=== PATIENT | female | born 1935 | race Caucasian/White ===

== ENCOUNTER 2020-01-15 20:26 | Emergency (ER) | payer MEDICARE, OTHER ==
[~2020-01-15] VITALS: Ht 162.6 cm; Wt 77.1 kg
[~2020-01-15 20:26] MED LIST: ACET325 PO; ACET500 PO; AMIT50 PO; AMLO5 PO; ASCO500 PO; ASPI325 PO; Antivert12.5 MG PO; Bactrim Ds Tab1 EACH PO; CARI350 PO; CETI10 PO; CIPR500 PO; CITA20 PO; CLON1 PO; CODGUAEL PO; DEXL60CA3 PO; DIAZ10; DIPH50; ERGO400 PO; ESOM20; ESOM20 PO; FENO145 PO; FERROUS SULFATE PO; FISH1000 PO; Ferus150 MG; GABA300 PO; HYDACE5; HYDACE5 PO; HYDACE5325 PO; HYDR1TAB94 PO; Hair, Skin & N1 EACH PO; LEVFLO250 PO; LEVFLO500; LEVSOD100 PO; LEVSOD125 PO; LEVSOD150 PO; LEVSOD175 PO; LEVSOD50 PO; LEVSOD75; LOVA20 PO; Lopressor 25 mg25 MG PO; METO10 PO; METO100ER; METO25 PO; METO25ER PO; METO50 PO; METO50ER PO; METR500 PO; MIDO2.5 PO; MIRT15 PO; MIRT30 PO; NAPR250 PO; NITR.4SL SL; Nexium PO; OMEP20ER PO; OMEP40CA12 PO; OSEL75CA PO; PROM25 PO; PROP30DR OU; Pain Relief500 MG PO; RANI150 PO; ROPI1; SPIHYD PO; SPIR25; SPIR25 PO; SUCR1 PO; SULTRIDS PO; Synthroid175 MCG PO; TRAZ100 PO; TRAZ50 PO; VENL150ER PO; VENL75ER; VENL75ER PO; Verotin-Gr Cap1 EACH PO; WARF2.5 PO; [UNRECOGNIZED DRUG - OTHER] PO
== END 2020-01-16 02:13 | disposition home or self-care (01) ==
LOC: ER 20:26
DX: T46.4X1A Poisoning by angiotensin-converting-enzyme inhibitors, accidental (unintentional), initial encounter (principal); T38.3X1A Poisoning by insulin and oral hypoglycemic [antidiabetic] drugs, accidental (unintentional), initial encounter; I10 Essential (primary) hypertension; Z88.0 Allergy status to penicillin; Z88.2 Allergy status to sulfonamides; Z88.5 Allergy status to narcotic agent; Z91.09 Other allergy status, other than to drugs and biological substances; Z88.8 Allergy status to other drugs, medicaments and biological substances; Z79.899 Other long term (current) drug therapy; E03.9 Hypothyroidism, unspecified; Z87.891 Personal history of nicotine dependence
CPT/HCPCS: 36415; 82947; 99284

== ENCOUNTER 2020-01-20 16:36 | Emergency (ER) | payer MEDICARE, OTHER ==
[~2020-01-20] VITALS: Ht 165.1 cm; Wt 81.7 kg
[2020-01-20 17:41] LABS: BASOPHILS ABSOLUTE AUTO 0.08 K/mm3 (0.00-0.23); BASOPHILS PERCENT AUTO 2 % (0-2); EOSINOPHILS PERCENT AUTO 4 % (0-6); Hematocrit 42.3 % (33.0-51.0); Hemoglobin 13.3 g/dL (11.5-16.0); IMMATURE GRAN ABSOLUTE AUTO 0.02 K/mm3 (0.00-0.10); IMMATURE GRAN PERCENT AUTO 0 % (0-1); LYMPHOCYTES ABSOLUTE AUTO 1.66 K/mm3 (0.84-5.20); LYMPHOCYTES PERCENT AUTO 32 % (21-46); MONOCYTES ABSOLUTE AUTO 0.49 K/mm3 (0.16-1.47); MONOCYTES PERCENT AUTO 10 % (4-13); Mean Corpuscular HGB Conc 31.4 g/dL (31.5-36.5); Mean Corpuscular Volume 96 fL (80-100); Mean Platelet Volume 10.7 fL (9.1-12.4); NEUTROPHILS ABSOLUTE AUTO 2.67 K/mm3 (1.96-9.15); NEUTROPHILS PERCENT AUTO 52 % (41-73); Platelet Count 210 K/mm3 (150-400); RDW Coefficient Variation 15.4 % (11.7-14.2); RDW Standard Deviation 54.7 fL (35.1-46.3); Red Blood Cell Count 4.43 M/mm3 (3.80-5.20); White Blood Cell Count 5.12 K/mm3 (4.00-11.30)
[2020-01-20 18:02] LABS: Alanine Aminotransfer (ALT/SGP 17 U/L (12-78); Albumin, Blood 3.9 g/dL (3.4-5.0); Alk Phos 56 U/L (50-136); Anion Gap 4 mmol/L (6-16); Aspartate Aminotrans (AST/SGOT 30 U/L (12-37); Bilirubin, Total 0.5 mg/dL (0.1-1.0); Blood Urea Nitrogen 18 mg/dL (8-24); CO2, Blood 30 mmol/L (21-32); Calcium, Blood 9.2 mg/dL (8.5-10.1); Chloride, Blood 103 mmol/L (98-108); Creatinine, Blood 1.99 mg/dL (0.40-1.00); Globulin, Blood 3.8 g/dL (2.2-4.0); Glomerular Filtration Rate 25 (60-); Glucose, Blood 97 mg/dL (70-99); Potassium, Blood 4.2 mmol/L (3.5-5.5); Sodium, Blood 137 mmol/L (136-145); Total Protein, Blood 7.7 g/dL (6.4-8.2); Troponin I <0.015 ng/mL (0.000-0.040)
[2020-01-20] MEDS ORDERED: Pepcid20 MG PO (19:07)
== END 2020-01-20 20:15 | disposition home or self-care (01) ==
LOC: ER 16:36
PROVIDERS: Emergency Medicine
DX: R10.13 Epigastric pain (principal); N28.9 Disorder of kidney and ureter, unspecified; I48.91 Unspecified atrial fibrillation; I10 Essential (primary) hypertension; Z88.0 Allergy status to penicillin; Z88.2 Allergy status to sulfonamides; Z88.5 Allergy status to narcotic agent; Z91.09 Other allergy status, other than to drugs and biological substances; Z88.8 Allergy status to other drugs, medicaments and biological substances; Z79.899 Other long term (current) drug therapy; E03.9 Hypothyroidism, unspecified; Z87.891 Personal history of nicotine dependence
CPT/HCPCS: 36415; 71045; 80053; 83690; 84484; 85025; 93005; 93010; 96374; 96375; 99284-25; J2405

== ENCOUNTER 2020-03-21 06:07 | Day surgery (SDC) | payer MEDICARE, OTHER ==
[~2020-03-21] VITALS: Ht 162.6 cm; Wt 86.4 kg
[~2020-03-21 06:07] MED LIST changes: +ALPRAZOLAM0.5 M1 PO; +AZITHROMYCIN250 MG PO; +BIOTIN1000 MCG PO; +ELIQUIS2.5 MG PO; +Effexor Xr37.5 MG PO; +LETR2.5 PO; +LEVSOD137 PO; +LEXAPRO5 MG; +Midodrine HCl2.5 MG PO; +PANTOPRAZOLE SO40 M2 PO; +Pepcid20 MG PO
--- NOTE | 2020-03-21 06:50 | NUR ---
History, Chart, Medications and Allergies reviewed before start of procedure. Lungs clear T/O to Auscultation. Patient confirms NPO status and agrees with scheduled surgery. Pre-Op teaching done. Pt verbalizes understanding.
--- NOTE | 2020-03-21 09:07 | NUR ---
PT LYING IN GURNEY WITH EYES CLOSED. WARMER APPLIED. TOLERATING WATER. ICE PACK APPLIED TO ABDOMEN. PT STATES NO FURTHER NEEDS AT THIS TIME. VSS. WILL CONTINUE TO MONITOR.
--- NOTE | 2020-03-21 09:40 | NUR ---
PT LYING IN GURNEY WITH EYES CLOSED. VSS. WILL CONTINUE TO MONITOR.
--- NOTE | 2020-03-21 10:22 | NUR ---
PT'S EYES OPEN AND TALKING. A&O X 3. PT SUCKING ON THROAT LOZANGE DUE TO "MY THROAT IS SORE."
--- NOTE | 2020-03-21 10:35 | NUR ---
PT STATES THROAT FEELS BETTER AFTER LOZENGE. PT EATING JELLO.
--- NOTE | 2020-03-21 11:38 | NUR ---
Patient up to Ambulate independently. Gait steady. Discharge instructions reviewed with patient AND PT'S CARGIVER. . Patient verbalizes understanding. Copy given to patient to take home. Discharged via wheelchair to private car for ride home.
== END 2020-03-21 22:45 | disposition home or self-care (01) ==
LOC: ORSCMMR 06:07 → ORD 07:30 → ORSCMMR 22:45
PROVIDERS: Surgery
PROC: 0WUF0JZ Supplement Abdominal Wall with Synthetic Substitute, Open Approach (ICD-10-PCS; principal; 2020-03-21 07:30)
DX: K43.2 Incisional hernia without obstruction or gangrene (principal); I48.91 Unspecified atrial fibrillation; Z79.01 Long term (current) use of anticoagulants; N18.9 Chronic kidney disease, unspecified; Z87.891 Personal history of nicotine dependence; E03.9 Hypothyroidism, unspecified; E78.5 Hyperlipidemia, unspecified; Z79.899 Other long term (current) drug therapy
CPT/HCPCS: C1781; J0690; J1100; J2310; J2370; J2405; J2704; J3010; J7120

== ENCOUNTER 2020-11-22 18:49 | Emergency (ER) | payer MEDICARE, OTHER ==
[~2020-11-22] VITALS: Ht 162.6 cm; Wt 116.1 kg
[2020-11-22 20:25] LABS: BASOPHILS ABSOLUTE AUTO 0.06 K/mm3 (0.00-0.23); BASOPHILS PERCENT AUTO 1 % (0-2); EOSINOPHILS PERCENT AUTO 2 % (0-6); Hematocrit 38.7 % (33.0-51.0); Hemoglobin 11.8 g/dL (11.5-16.0); IMMATURE GRAN ABSOLUTE AUTO 0.04 K/mm3 (0.00-0.10); IMMATURE GRAN PERCENT AUTO 1 % (0-1); LYMPHOCYTES ABSOLUTE AUTO 1.38 K/mm3 (0.84-5.20); LYMPHOCYTES PERCENT AUTO 17 % (21-46); MONOCYTES ABSOLUTE AUTO 0.97 K/mm3 (0.16-1.47); MONOCYTES PERCENT AUTO 12 % (4-13); Mean Corpuscular HGB 28.6 pg (26.0-34.0); Mean Corpuscular HGB Conc 30.5 g/dL (31.5-36.5); Mean Corpuscular Volume 94 fL (80-100); Mean Platelet Volume 10.9 fL (9.1-12.4); NEUTROPHILS ABSOLUTE AUTO 5.55 K/mm3 (1.96-9.15); NEUTROPHILS PERCENT AUTO 68 % (41-73); Platelet Count 222 K/mm3 (150-400); RDW Coefficient Variation 13.6 % (11.7-14.2); RDW Standard Deviation 47.4 fL (35.1-46.3); Red Blood Cell Count 4.12 M/mm3 (3.80-5.20)
[2020-11-22 20:31] LABS: Bun/Creatinine Ratio 17.6 (12.0-20.0); Calcium, Blood 9.5 mg/dL (8.5-10.1); Creatinine, Blood 1.36 mg/dL (0.40-1.00); Potassium, Blood 5.1 mmol/L (3.5-5.5)
== END 2020-11-22 22:14 | disposition home or self-care (01) ==
LOC: ER 18:49
PROVIDERS: Student in an Organized Health Care Education/Training Program
DX: S00.83XA Contusion of other part of head, initial encounter (principal); I10 Essential (primary) hypertension; E03.9 Hypothyroidism, unspecified; Z88.0 Allergy status to penicillin; Z88.2 Allergy status to sulfonamides; Z88.8 Allergy status to other drugs, medicaments and biological substances; Z91.041 Radiographic dye allergy status; Z88.5 Allergy status to narcotic agent; Z79.01 Long term (current) use of anticoagulants; Z79.899 Other long term (current) drug therapy; Z87.891 Personal history of nicotine dependence; W18.30XA Fall on same level, unspecified, initial encounter
CPT/HCPCS: 36415; 70450; 80048; 85025; 99284-25

== ENCOUNTER 2020-12-14 11:35 | Emergency (ER) | payer MEDICARE, OTHER ==
[~2020-12-14] VITALS: Ht 162.6 cm; Wt 72.6 kg
== END 2020-12-14 13:28 | disposition home or self-care (01) ==
LOC: ER 11:35
DX: S00.83XA Contusion of other part of head, initial encounter (principal); I10 Essential (primary) hypertension; E03.9 Hypothyroidism, unspecified; Z79.01 Long term (current) use of anticoagulants; Z79.899 Other long term (current) drug therapy; Z88.0 Allergy status to penicillin; Z91.041 Radiographic dye allergy status; Z88.2 Allergy status to sulfonamides; Z88.5 Allergy status to narcotic agent; Z88.8 Allergy status to other drugs, medicaments and biological substances; Z87.891 Personal history of nicotine dependence; W18.30XA Fall on same level, unspecified, initial encounter; Y92.009 Unspecified place in unspecified non-institutional (private) residence as the place of occurrence of the external cause
CPT/HCPCS: 36415; 70450; 72125; 93005; 93010; 99284-25

== ENCOUNTER 2021-11-17 13:02 | Emergency (ER) | payer MEDICARE, OTHER ==
[~2021-11-17] VITALS: Ht 167.6 cm; Wt 90.7 kg
[~2021-11-17 13:02] MED LIST changes: +EUTHYROX125 MCG PO; -Effexor Xr37.5 MG PO; -LEVSOD137 PO
[2021-11-17] MEDS ORDERED: QUET25 PO (14:20)
[2021-11-17] MEDS ORDERED: ESCI10 PO (14:22)
[2021-11-17] MEDS ORDERED: ALPR.5 PO (14:23)
[2021-11-17] MEDS ORDERED: MELATONIN10 M9 PO (14:25)
[2021-11-17] MEDS ORDERED: FURO40 PO (14:27)
[2021-11-17] MEDS ORDERED: CALC.25 PO (14:27)
[2021-11-17] MEDS ORDERED: QUETIAPINE FUMA50 M2 PO (14:27)
[2021-11-17] MEDS ORDERED: Norco 5-325 Ta1 EACH PO (15:08)
== END 2021-11-17 15:53 | disposition home or self-care (01) ==
LOC: ER 13:02
DX: S40.022A Contusion of left upper arm, initial encounter (principal); M25.512 Pain in left shoulder; E03.9 Hypothyroidism, unspecified; I10 Essential (primary) hypertension; Z87.891 Personal history of nicotine dependence; W19.XXXA Unspecified fall, initial encounter
CPT/HCPCS: 36415; 70450; 71111; 73030; 73060; 93005; 93010; 96374; 96375; 99284-25; J2270; J2405

== ENCOUNTER 2022-03-18 14:10 | Emergency (ER) | payer MEDICARE, OTHER ==
[~2022-03-18] VITALS: Ht 165.1 cm; Wt 81.7 kg
[~2022-03-18 14:10] MED LIST changes: +ALPR.5 PO; +CALC.25 PO; +ESCI10 PO; +FURO40 PO; +MELATONIN10 M9 PO; +Norco 5-325 Ta1 EACH PO; +QUET25 PO; +QUETIAPINE FUMA50 M2 PO
== END 2022-03-18 17:33 | disposition home or self-care (01) ==
LOC: ER 14:10
DX: S00.83XA Contusion of other part of head, initial encounter (principal); S40.012A Contusion of left shoulder, initial encounter; E03.9 Hypothyroidism, unspecified; I10 Essential (primary) hypertension; W01.198A Fall on same level from slipping, tripping and stumbling with subsequent striking against other object, initial encounter; Z88.0 Allergy status to penicillin; Z88.2 Allergy status to sulfonamides; Z88.8 Allergy status to other drugs, medicaments and biological substances; Z91.048 Other nonmedicinal substance allergy status; Z79.899 Other long term (current) drug therapy; Z79.01 Long term (current) use of anticoagulants; Z87.891 Personal history of nicotine dependence
CPT/HCPCS: 70450; 73030; A9270

== ENCOUNTER 2022-03-30 13:33 | Inpatient (IN) | payer MEDICARE, OTHER ==
[~2022-03-30] VITALS: Ht 165.1 cm; Wt 88.9 kg
[2022-03-30 14:16] LABS: BASOPHILS ABSOLUTE AUTO 0.05 K/mm3 (0.00-0.23); BASOPHILS PERCENT AUTO 0 % (0-2); EOSINOPHILS PERCENT AUTO 1 % (0-6); Hematocrit 40.3 % (33.0-51.0); Hemoglobin 13.3 g/dL (11.5-16.0); IMMATURE GRAN ABSOLUTE AUTO 0.07 K/mm3 (0.00-0.10); IMMATURE GRAN PERCENT AUTO 1 % (0-1); LYMPHOCYTES PERCENT AUTO 19 % (21-46); MONOCYTES ABSOLUTE AUTO 1.33 K/mm3 (0.16-1.47); MONOCYTES PERCENT AUTO 11 % (4-13); Mean Corpuscular HGB 29.2 pg (26.0-34.0); Mean Corpuscular Volume 89 fL (80-100); Mean Platelet Volume 12.3 fL (9.1-12.4); NEUTROPHILS ABSOLUTE AUTO 8.03 K/mm3 (1.96-9.15); NEUTROPHILS PERCENT AUTO 68 % (41-73); Platelet Count 191 K/mm3 (150-400); RDW Coefficient Variation 13.5 % (11.7-14.2); RDW Standard Deviation 43.9 fL (35.1-46.3); Red Blood Cell Count 4.55 M/mm3 (3.80-5.20); White Blood Cell Count 11.78 K/mm3 (4.00-11.30)
[2022-03-30 14:31] LABS: Albumin, Blood 3.6 g/dL (3.4-5.0); Albumin/Globulin Ratio 0.9 (0.8-1.8); Bilirubin, Total 1.3 mg/dL (0.1-1.0); Bun/Creatinine Ratio 24.4 (12.0-20.0); Calcium, Blood 9.3 mg/dL (8.5-10.1); Creatinine, Blood 4.09 mg/dL (0.40-1.00); Globulin, Blood 4.2 g/dL (2.2-4.0); Potassium, Blood 4.2 mmol/L (3.5-5.5); Total Protein, Blood 7.8 g/dL (6.4-8.2)
[2022-03-30 16:56] LABS: Source, Urine Straight Cath
[2022-03-30 17:14] LABS: Appearance, Urine Hazy (Clear); Bilirubin, Urine Neg (Neg); Blood, Urine Neg (Neg); Color, Urine Yellow (P-Yellow); Glucose Qualitative, Urine Neg (Neg); Ketones, Urine Neg (Neg); Leukocyte Esterase, Urine Neg (Neg); Nitrite, Urine Neg (Neg); Protein, Urine Neg (Neg); Urobilinogen, Urine NORM (Normal)
[2022-03-30 17:28] LABS: Amorphous Mod (0-Heavy); Bacteria Many /hpf; Hyaline Casts 0-2 /lpf (0-2); Mucus Light (0-Heavy); Red Blood Cells, Urine 0-2 /hpf (0-2); Squamous Epithelial Cells Few /hpf (Few); Transitional Epithelial Cells Rare /hpf (0-Rare); White Blood Cells, Urine 0-2 /hpf (0-5)
[2022-03-30 20:03] LABS: Creatine Kinase MB 6.4 ng/mL (0.0-3.6); Creatine Kinase MB Index 1.6 (0.0-4.0)
[2022-03-31 04:31] LABS: Hematocrit 36.5 % (33.0-51.0); Hemoglobin 11.7 g/dL (11.5-16.0); Mean Corpuscular HGB Conc 32.1 g/dL (31.5-36.5); Mean Corpuscular Volume 90 fL (80-100); Mean Platelet Volume 12.5 fL (9.1-12.4); Platelet Count 166 K/mm3 (150-400); RDW Coefficient Variation 13.7 % (11.7-14.2); RDW Standard Deviation 45.3 fL (35.1-46.3); Red Blood Cell Count 4.04 M/mm3 (3.80-5.20); White Blood Cell Count 9.66 K/mm3 (4.00-11.30)
--- NOTE | 2022-03-31 04:32 | NUR ---
PT ALERT TO SELF AND PLACE. PLEASANTLY CONFUSED. PT WITH ORDER FOR NS @125 ML/HR. PER REPORT HX OF CHF-LUNGS CLEAR, EDEMA +1 TO BLE. PER LAURIE LOOM CHANGER CONTINUE WITH FLUIDS ORDER. PT REQUIRES X2 ASSIST TO BEDSIDE COMMODE. ADMIT INFORMATION OBTAINED BY FELISHA ARIAS FROM [facility] (DIL) AND PER RN [facility] TO BRING MEDICATION LIST LATER TODAY. PT HAS NOT HAD BM STOOL SAMPLE STILL PENDING.
[2022-03-31 04:51] LABS: Bun/Creatinine Ratio 28.1 (12.0-20.0); Calcium, Blood 8.6 mg/dL (8.5-10.1); Creatinine, Blood 3.56 mg/dL (0.40-1.00); Potassium, Blood 3.4 mmol/L (3.5-5.5)
[2022-03-31] MEDS ORDERED: PANT40 PO (11:27)
[2022-03-31] MEDS ORDERED: QUET25 PO (11:27)
[2022-03-31] MEDS ORDERED: ALPR.5 PO (11:31)
[2022-03-31 11:58] LABS: Potassium, Blood 3.9 mmol/L (3.5-5.5)
[2022-03-31 17:30] LABS: Calcium, Blood 8.4 mg/dL (8.5-10.1); Creatinine, Blood 3.03 mg/dL (0.40-1.00); Potassium, Blood 3.8 mmol/L (3.5-5.5)
--- NOTE | 2022-03-31 18:30 | NUR ---
PATIENT HAS BEEN TIRED THIS SHIFT. SHE IS COOPERATIVE WITH CARE AND TAKES MEDIATION WELL WITH APPLE SAUCE. OT WAS WORKING WITH PATIENT TODAY AND RECOMMEND ASSIST OF 2 IF STAFF DOES GET PATIENT UP AND OUT OF BED DUE TO HER DIFFICULTY IN MOVING LEGS ONCE UP. THERE ARE SOME SCATTERED CRACKLES IN LUNG. PATIENT DENIES A COUGH AND SOB.
--- NOTE | 2022-04-01 03:29 | NUR ---
SHIFT SUMMARY PT ALERT TO SELF AND PLACE, PLEASANTLY CONFUSED. PT STILL WITHOUT BM THEREFORE GI PANEL D/C BEING ITS BEEN OVER 24 HOURS IT WAS ORDERED. ISOLATION DC. PT UP TO COMMODE WITH 2 PERSON ASSIST. PT PULLED IV LINE OUT STATING SHE DOES NOT NEED IT ANYMORE. REFUSED NEW PLACEMENT. PT CURRENTLY WITH NO IV MEDICATIONS. NOTIFIED DR. LUTHER AND PER MD CORRAL FOR PT TO BE WITHOUT IV AT THIS TIME.
[2022-04-01 05:51] LABS: Hematocrit 35.1 % (33.0-51.0); Hemoglobin 11.1 g/dL (11.5-16.0); Mean Corpuscular HGB 29.2 pg (26.0-34.0); Mean Corpuscular HGB Conc 31.6 g/dL (31.5-36.5); Mean Corpuscular Volume 92 fL (80-100); Mean Platelet Volume 12.7 fL (9.1-12.4); Platelet Count 156 K/mm3 (150-400); RDW Coefficient Variation 14.1 % (11.7-14.2); RDW Standard Deviation 47.8 fL (35.1-46.3); White Blood Cell Count 8.52 K/mm3 (4.00-11.30)
[2022-04-01 06:08] LABS: Albumin, Blood 2.8 g/dL (3.4-5.0); Anion Gap 6 mmol/L (6-16); Blood Urea Nitrogen 84 mg/dL (8-24); CO2, Blood 30 mmol/L (21-32); Calcium, Blood 8.5 mg/dL (8.5-10.1); Chloride, Blood 103 mmol/L (98-108); Creatinine, Blood 2.71 mg/dL (0.40-1.00); Glomerular Filtration Rate 17 (60-); Glucose, Blood 83 mg/dL (70-99); Phosphorus, Blood 3.8 mg/dL (2.5-4.9); Potassium, Blood 4.1 mmol/L (3.5-5.5); Sodium, Blood 139 mmol/L (136-145)
--- NOTE | 2022-04-01 06:50 | NUR ---
ORDERS RECEIVED I ACCEPTED ORDERS FOR THIS PT FROM DR. KRISHNAMURTHY FOR IV ACCESS & LR INFUSION. I WILL REPORT TO PM RN, TO RELAY TO AM RN
--- NOTE | 2022-04-01 14:36 | NUR ---
Spiritual Care Visit. Pt. is in bed and welcomes my visit. Family (two granddaughters) are present. Pt. is unsettled because she can't hear well. Granddaughter turns TV volume down. Pt. is also unsettled by the prospect of being sent home before she can be well cared for. Listen empatheticially with a calming presence. Pt. can verbalize family history in detail, but displays evidence of confusion regarding details of recent memory. 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 Build rapport, and pray with Pt. with granddaughters present at bedside. Pt. and eldest granddaughter verblaize gratitude for the spiritual care visit.
--- NOTE | 2022-04-01 17:19 | NUR ---
SHIFT SUMMARY PT AXO TO SELF, FOLLOWING DIRECTIONS AND FAMILY MEMBERS. FORGETFUL THOUGH PLEASANT AND COOPERATIVE WITH CARE, [place]. PERIPHERAL IV ESTABLISHED THIS SHIFT BY CHARGE NURSE AND IV FLUIDS RUNNING PER EMAR. VSS THIS SHIFT. PT UP TO CHAIR FOR LUNCH WITH 2 ASSIST FWW AND GB. PT DENIES PAIN,NV AND SOB. PT HAD VISIT FROM SPIRITUAL CARE, SEE NOTE. CARE MANAGERS INVOLVED FOR PLACEMENT, SEE NOTES. BED IN LOW POSITION, CALL LIGHT WITHIN REACH, BED ALARM ON.
--- NOTE | 2022-04-02 05:23 | NUR ---
SHIFT SUMMARY 86 YR F ADMITTED ON 03/30/22 AFTER MULTIPLE FALLS AT HOME. FULL CODE. PT IS PLEASANTLY CONFUSED BUT LIKES TO CRACK JOKES. SHE SLEPT FOR A GOOD PORTION OF THIS SHIFT AND WOKE UP WANTING TO USE THE BATHROOM. SHE WAS A 2 PERSON ASSIST TO THE BEDSIDE COMMODE. SHE DID NOT TRY TO GET OUT OF BED ON HER OWN THIS SHIFT AND SHE DID NOT PULL AT HER IV. SHE HAS BEEN COOPERATIVE W/ CARE AND IS A VERY SWEET LADY.
[2022-04-02 06:15] LABS: Albumin, Blood 2.8 g/dL (3.4-5.0); Anion Gap 7 mmol/L (6-16); Blood Urea Nitrogen 70 mg/dL (8-24); Bun/Creatinine Ratio 33.3 (12.0-20.0); CO2, Blood 26 mmol/L (21-32); Calcium, Blood 8.6 mg/dL (8.5-10.1); Chloride, Blood 105 mmol/L (98-108); Glomerular Filtration Rate 23 (60-); Glucose, Blood 82 mg/dL (70-99); Phosphorus, Blood 3.3 mg/dL (2.5-4.9); Potassium, Blood 4.5 mmol/L (3.5-5.5); Sodium, Blood 138 mmol/L (136-145)
--- NOTE | 2022-04-02 18:15 | NUR ---
SHIFT SUMMARY: NO ACUTE EVENTS. GETTING UP TO CHAIR FOR MEALS, NEEDS 1-2 PERSON ASSIST WITH FWW. USING BSC. DENIED PAIN. TOLERATING PO INTAKE, BUT EATS VERY SLOWLY. AWAITING PLACEMENT AT [facility].
[2022-04-03 05:26] LABS: Albumin, Blood 2.5 g/dL (3.4-5.0); Anion Gap 3 mmol/L (6-16); Blood Urea Nitrogen 59 mg/dL (8-24); Bun/Creatinine Ratio 32.2 (12.0-20.0); CO2, Blood 30 mmol/L (21-32); Calcium, Blood 8.7 mg/dL (8.5-10.1); Chloride, Blood 104 mmol/L (98-108); Creatinine, Blood 1.83 mg/dL (0.40-1.00); Glomerular Filtration Rate 27 (60-); Glucose, Blood 91 mg/dL (70-99); Phosphorus, Blood 2.9 mg/dL (2.5-4.9); Potassium, Blood 4.7 mmol/L (3.5-5.5); Sodium, Blood 137 mmol/L (136-145)
--- NOTE | 2022-04-03 06:27 | NUR ---
PT IS ALERT AND VERY PLEASANTLY CONFUSED. 1-ASSIST TO BSC. PO MEDS GIVEN IN APPLESAUCE. PT TO D/C TO [facility]. DENIED PAIN THIS SHIFT.
--- NOTE | 2022-04-03 14:26 | NUR ---
Spiritual Care Visit. Pt. is sitting up in a bedside chair and welcomes my visit. Pt. invites me to pull up a chair, and I do so. Pt. is unsettled about her limited mobility. Listen theraputically with a calm present. Pt. is pleasant but soft spoken. RE=establish rapport with Pt. Pt. displays evidence of trust and engagement. Prayed with Pt. Pt. verbalized gratitude for the spiritual care visit, and welcomed this medical imaging technician to return.
--- NOTE | 2022-04-03 17:12 | NUR ---
Pt resting in bed and is pleasantly confused. Pt is A&OX2. Pt denies pain and dyspnea at this time. Pt does complain of being cold. Provided warm blanket per Pt's request and agreement from Primary RN Cely. Reviewed chart and called Pt's DIL Tracy. Reviewed plan of care and engaged in therapeutic conversation regarding advanced care planning. Gentle education on disease process including trajectory of disease. Discussed the importance of planning for the future as disease progresses. Tracy reports hospitalist Dr Goodman discussed considering hospice as well. Discussed considering completing a POLST, educated on life sustaining treatments including risk factors and implications of CPR. Offered therapeutic listening and answered questions. Tracy reports plan to consider all information and expresses appreciation. Palliative Care will remain available.
--- NOTE | 2022-04-03 18:37 | NUR ---
SHIFT SUMMARY: PT A/O X 1, 1 PERSON ASSIST TO BSC. PLEASANT AND COOPERATIVE WITH CARES. PT HAD VISITOR FROM [facility] TODAY AT 1230 FOR EVALUATION. PT COOPERATED WITH EVAL. PT UP IN CHAIR FOR LUNCH AND DINNER TODAY. PT DID NOT HAVE C/O PAIN. PAINAD WAS 0/10 THROUGHOUT THE DAY. PT HAD CLEAR YELLOW URINE OUTPUT.
--- NOTE | 2022-04-04 03:59 | NUR ---
PATIENT WITH VSS ON RA OVERNIGHT. PATIENT CALM AND COOPERATIVE WITH CARE OVERNIGHT. PAITENT DOES SET OFF HER BED ALARM WHEN SHE HAS TO USE THE TOILET. UP WITH 1 AND A GAIT BELT, PIVOT TO COMMODE. NO ACUTE SKIN ISSUES NOTED. PATIENT ABLE TO SWALLOW MULTIPLE MEDICATIONS WITH OUT DIFFICULTY. NO ACUTE EVENTS OVERNIGHT. AWAITING PLACEMENT AT [facility], POSSIBLY TODAY.
--- NOTE | 2022-04-04 19:21 | NUR ---
PATIENT IS ALERT AND ORIENTED WITH INTERMITTENT CONFUSION. ON RA. NO BM THIS SHIFT. PATIENT C/O NAUSEA AFTER DINNER. PATIENT'S GRANDAUGHTER WAS AT THE BEDSIDE THIS AFTERNOON. WILL CONTINUE TO MONITOR
--- NOTE | 2022-04-05 03:42 | NUR ---
PATIENT WITH VSS ON RA OVERNIGHT. NAUSEATED AT BEGINNING OF SHIFT WITH 1 EPISODE OF VOMITING. PATIENT STATES SHE FEELS BETTER AFTER VOMITING. MEDICATED PER MAR. PATIENT HAS GONE 6 DAYS WITH NO RECORDED BM. ABDOMEN SOFT WITH GOOD BOWL SOUNDS. PATIENT UP WITH 1 TO BSC. VOIDING. HEADACHE. TYLENOL GIVEN. PATIENT AWAITING DC PLAN.
--- NOTE | 2022-04-05 17:40 | NUR ---
SHIFT SUMMARY; PATIENT WAS UP FOR MEALS TODAY. SHE ASKED TO GO BACK TO BED RIGHT AWAY AFTER EATING. SHE SLEPT ON AND OFF MOST OF AFTERNOON AND AM. HER VITAL SIGNS WNL. NO ACUTE CHANGES IN CONDITION ARE NOTED. PATIIENT IS ORIENED TO SELF THROUGHOUT THE DAY. SHE TAKES HER PILLS WHOLE WITH APPLESAUCE. NO SKIN ISSUES OTHER THAN SCATTERED BRUISING IS NOTED. SHE DOES NOT USE THE CALL LIGHT TO MAKE HER NEEDS KNOWN. SHE HAS AN IV IN HER RIGHT WRIST THAT IS CURRENTLY SALINE LOCKED.PATIENT IS GIVEN BOWEL PREP MEDICATIONS PER EMAR AND HAS NOT HAD A BM TODAY. WILL REMAIN AVAILABLE FOR THIS PATIENT FOR ANY WANTS OR NEEDS THAT COME UP PRIOR TO SHIFT CHANGE.
--- NOTE | 2022-04-06 05:30 | NUR ---
PT IS PLEASANTLY CONFUSED, 1-2 ASSIST TO BSC. PLAN TO D/C TO [facility]. MEDS GIVEN WITH APPLESAUCE.
--- NOTE | 2022-04-06 16:52 | NUR ---
SHIFT SUMMARY; PATIENT REMAINS PLEASANTLY CONFUSED THROUGHOUT THE DAY. IS ORIENTED TO PERSON ONLY. PATIENT IS NOTED TO SIT ON EDGE OF BED AND TO TRY AND GET UP SAYING SHE IS GOING TO GET DRESSDED AND GO HOME. ATTEMPTS TO REORIENT HER ARE UNSUCCESSFUL. FAMILY COMES TO SEE PATIENT TODAY AND RELAY THAT THEY HAVE MEETING WITH [facility] FOR POSSIBLE PLACEMENT FOR HER THERE. PATIENT TAKES HER PILLS WHOLE WITH APPLESAUCE ONE AT A TIME. SHE HAS MINIMAL APPETITE WHEN EATING LUNCH OR BREAKFAST
--- NOTE | 2022-04-07 05:40 | NUR ---
PT 2 ASSIST TO BSC, CONFUSED BUT PLEASANT. HAD VERY LARGE BM THIS SHIFT. D/C TO [facility].
--- NOTE | 2022-04-07 19:34 | NUR ---
SHIFT SUMMARY- PT ALERT AND ORIENTED TO SELF, IN BED CALL LIGHT IN REACH 1-2 ASSIST TO THE BSC. PT HAS HAD NO ACUTE CHANGES T/O THE SHIFT. DENIES ANY PAIN. BEDSIDE REPORT COMPLETED WITH NIGHT RN. NO S&S OF DISTRESS AT THE TIME OF REPORT.
--- NOTE | 2022-04-08 04:40 | NUR ---
86 year old with acute kidney injury admitted on 03/30/22 continues to need extensive assist with ADLS & toileting & needs assist with DC plan. Pleasantly confused PT able to communicate. Poor appetite PT fed self 20% diet. Transfer to BS with extensive assist FWW gaitbelt. Dc planning to memory care facility.
--- NOTE | 2022-04-08 18:03 | NUR ---
SHIFT SUMMARY PT CONFUSED, FOLLOWS SIMPLE COMMANDS, VERY PLEASANT. UP TO BEDSIDE COMMODE X1 ASSIST WITH WALKER. PT STILL PENDING PLACEMENT, POSSIBLE D/C TO [facility] TOMORROW. WILL CONTINUE TO MONITOR
--- NOTE | 2022-04-09 03:33 | NUR ---
86 year old Female with Dementia recovering from UTI AUSTEN on CKD. Weak & needs extensive assist to stand pivot & transfer to BSC. Using gait belt fww & needs extensive cues & assist to take few steps. Set up with ensure & applesauce able to feed self. Needs extensive assist with ADLS. Seeking safe dc plan for higher level of care. Family involved.
[2022-04-09] MEDS ORDERED: SENN187 PO (07:39)
[2022-04-09] MEDS ORDERED: MIRALAX17 GM PO (07:41)
--- NOTE | 2022-04-09 17:16 | NUR ---
STATISTICAL CLERK NOTE PT CONFUSED, NOT ABLE TO ANSWER ORIENTATION QUESTIONS, SOMETIMES ORIENTATED TO SELF. ABLE TO FOLLOW INSTRUCTIONS, PLEASANT AND COOPERATIVE WITH HER CARE AND MEDICATIONS. SWALLOWED MEDS EASILY WITH WATER/MILK. UP TO THE BSC WITH GAIT BELT/WALKER AND 1 PERSON ASSIST TO TRANSFER. DENIED PAUIN OR SOB. GOOD UOP, CLEAR YELLOW URINE, VOIDED 500 AND 400CC VOLUMES. CONTINENT OF URINE. NO BM. FAMILY GIVEN DISCHARGE INSTRUCTIONS, WRITTEN AND VERBAL, VERBALISED UNDERSTANDING OF DC INSTRUCTIONS. PIV REMOVED INTACT PRIOR TO DISCHARGE. PT DRESSED BY FAMILY, ESCORTED BY HOT BILLET SHEAR OPERATOR VIA W/C TO FAMILY CAR FOR DISCHARGE TO [facility] AT 1715.
== END 2022-04-09 17:05 | disposition home or self-care (01) | DRG 682 ==
LOC: ER 13:33 → MEDS 20:16
PROVIDERS: Family Medicine; Nurse Practitioner Acute Care; Physician Assistant; ADMIT Internal Medicine
DX: N17.9 Acute kidney failure, unspecified (principal); G93.41 Metabolic encephalopathy; E87.1 Hypo-osmolality and hyponatremia; N39.0 Urinary tract infection, site not specified; I13.0 Hypertensive heart and chronic kidney disease with heart failure and stage 1 through stage 4 chronic kidney disease, or unspecified chronic kidney disease; I50.32 Chronic diastolic (congestive) heart failure; I48.20 Chronic atrial fibrillation, unspecified; M47.812 Spondylosis without myelopathy or radiculopathy, cervical region; M54.30 Sciatica, unspecified side; M19.90 Unspecified osteoarthritis, unspecified site; F41.9 Anxiety disorder, unspecified; A08.4 Viral intestinal infection, unspecified; G30.9 Alzheimer's disease, unspecified; E87.6 Hypokalemia; B96.1 Klebsiella pneumoniae [K. pneumoniae] as the cause of diseases classified elsewhere; F32.A Depression, unspecified; N18.4 Chronic kidney disease, stage 4 (severe); F02.80 Dementia in other diseases classified elsewhere, unspecified severity, without behavioral disturbance, psychotic disturbance, mood disturbance, and anxiety; R11.2 Nausea with vomiting, unspecified; E03.9 Hypothyroidism, unspecified; Z90.49 Acquired absence of other specified parts of digestive tract; Z90.89 Acquired absence of other organs; Z98.891 History of uterine scar from previous surgery; Z98.890 Other specified postprocedural states; Z87.891 Personal history of nicotine dependence; Z87.11 Personal history of peptic ulcer disease; Z79.01 Long term (current) use of anticoagulants; Z79.899 Other long term (current) drug therapy
CPT/HCPCS: 36415; 51701; 71045; 74176; 80048; 80053; 80069; 81001; 82550; 82553; 83690; 83735; 84100; 84132; 84443; 84484; 85025; 85027; 87077; 87086; 87186; 93005; 93010; 96374-59; 97110; 97116; 97162; 97165; 97530; 97535; 99285-25; A9270; J0744; J2405; J7030; J7120

== ENCOUNTER 2022-04-21 01:21 | Emergency (ER) | payer MEDICARE, OTHER ==
[~2022-04-21] VITALS: Ht 165.1 cm; Wt 90.7 kg
[~2022-04-21 01:21] MED LIST changes: +MIRALAX17 GM PO; +PANT40 PO; +SENN187 PO
== END 2022-04-21 05:55 | disposition home or self-care (01) ==
LOC: ER 01:21
DX: S00.83XA Contusion of other part of head, initial encounter (principal); I10 Essential (primary) hypertension; E03.9 Hypothyroidism, unspecified; Z88.5 Allergy status to narcotic agent; Z88.0 Allergy status to penicillin; Z88.2 Allergy status to sulfonamides; Z88.8 Allergy status to other drugs, medicaments and biological substances; Z91.041 Radiographic dye allergy status; Z79.899 Other long term (current) drug therapy; Z79.01 Long term (current) use of anticoagulants; Z87.891 Personal history of nicotine dependence; W19.XXXA Unspecified fall, initial encounter
CPT/HCPCS: 70450

== ENCOUNTER 2022-05-01 03:45 | Emergency (ER) | payer MEDICARE, OTHER ==
[~2022-05-01] VITALS: Ht 165.1 cm; Wt 104.3 kg
[2022-05-01 04:09] LABS: BASOPHILS ABSOLUTE AUTO 0.07 K/mm3 (0.00-0.23); BASOPHILS PERCENT AUTO 1 % (0-2); EOSINOPHILS ABSOLUTE AUTO 0.35 K/mm3 (0.00-0.68); EOSINOPHILS PERCENT AUTO 4 % (0-6); Hematocrit 39.6 % (33.0-51.0); Hemoglobin 12.2 g/dL (11.5-16.0); IMMATURE GRAN ABSOLUTE AUTO 0.04 K/mm3 (0.00-0.10); IMMATURE GRAN PERCENT AUTO 0 % (0-1); LYMPHOCYTES ABSOLUTE AUTO 2.62 K/mm3 (0.84-5.20); LYMPHOCYTES PERCENT AUTO 29 % (21-46); MONOCYTES ABSOLUTE AUTO 1.16 K/mm3 (0.16-1.47); MONOCYTES PERCENT AUTO 13 % (4-13); Mean Corpuscular HGB 28.8 pg (26.0-34.0); Mean Corpuscular HGB Conc 30.8 g/dL (31.5-36.5); Mean Corpuscular Volume 94 fL (80-100); Mean Platelet Volume 11.1 fL (9.1-12.4); NEUTROPHILS ABSOLUTE AUTO 4.69 K/mm3 (1.96-9.15); NEUTROPHILS PERCENT AUTO 53 % (41-73); Platelet Count 240 K/mm3 (150-400); RDW Coefficient Variation 14.7 % (11.7-14.2); RDW Standard Deviation 50.4 fL (35.1-46.3); Red Blood Cell Count 4.23 M/mm3 (3.80-5.20); White Blood Cell Count 8.93 K/mm3 (4.00-11.30)
[2022-05-01 04:25] LABS: International Normalized Ratio 0.99; Prothrombin Time Results 10.4 Sec (9.7-11.5)
[2022-05-01 04:40] LABS: Alanine Aminotransfer (ALT/SGP 16 U/L (12-78); Albumin, Blood 3.2 g/dL (3.4-5.0); Albumin/Globulin Ratio 0.8 (0.8-1.8); Alk Phos 146 U/L (50-136); Anion Gap 6 mmol/L (6-16); Aspartate Aminotrans (AST/SGOT 27 U/L (12-37); Bilirubin, Total 0.4 mg/dL (0.1-1.0); Blood Urea Nitrogen 31 mg/dL (8-24); Bun/Creatinine Ratio 21.7 (12.0-20.0); CO2, Blood 29 mmol/L (21-32); Calcium, Blood 8.9 mg/dL (8.5-10.1); Chloride, Blood 105 mmol/L (98-108); Creatinine, Blood 1.43 mg/dL (0.40-1.00); Ethanol (Alcohol), Blood, Med <3 mg/dL; Glomerular Filtration Rate 36 (60-); Glucose, Blood 99 mg/dL (70-99); Sodium, Blood 140 mmol/L (136-145); Total Protein, Blood 7.2 g/dL (6.4-8.2)
== END 2022-05-01 07:57 | disposition home or self-care (01) ==
LOC: ER 03:45
PROVIDERS: Student in an Organized Health Care Education/Training Program
DX: S09.90XA Unspecified injury of head, initial encounter (principal); S01.81XA Laceration without foreign body of other part of head, initial encounter; S05.12XA Contusion of eyeball and orbital tissues, left eye, initial encounter; S16.1XXA Strain of muscle, fascia and tendon at neck level, initial encounter; S20.00XA Contusion of breast, unspecified breast, initial encounter; I10 Essential (primary) hypertension; E03.9 Hypothyroidism, unspecified; I48.91 Unspecified atrial fibrillation; Z88.8 Allergy status to other drugs, medicaments and biological substances; Z88.0 Allergy status to penicillin; Z88.2 Allergy status to sulfonamides; Z88.5 Allergy status to narcotic agent; Z91.048 Other nonmedicinal substance allergy status; Z79.899 Other long term (current) drug therapy; Z79.01 Long term (current) use of anticoagulants; Z87.891 Personal history of nicotine dependence; W19.XXXA Unspecified fall, initial encounter
CPT/HCPCS: 12011; 70450; 71250; 72125; 74176; 80053; 85025; 85610; 85730; 90471; 90714; 93005; 93010; 96374; 96376; 99284-25; G0480; J3010

== ENCOUNTER 2022-05-16 11:15 | Emergency (ER) | payer MEDICARE, OTHER ==
[~2022-05-16] VITALS: Ht 165.1 cm; Wt 81.7 kg
== END 2022-05-16 14:00 | disposition home or self-care (01) ==
LOC: ER 11:15
DX: S93.402A Sprain of unspecified ligament of left ankle, initial encounter (principal); M19.072 Primary osteoarthritis, left ankle and foot; W19.XXXA Unspecified fall, initial encounter; Z88.0 Allergy status to penicillin; Z88.2 Allergy status to sulfonamides; Z88.5 Allergy status to narcotic agent; Z91.041 Radiographic dye allergy status; Z79.01 Long term (current) use of anticoagulants; Z91.81 History of falling
CPT/HCPCS: 73610

== ENCOUNTER → 2023-02-18 | Outpatient (CLI) | payer MEDICARE, OTHER ==
[2023-02-18 10:22] LABS: Source, Urine Clean Catch
[2023-02-18 11:02] LABS: Appearance, Urine Clear (Clear); Bilirubin, Urine Neg (Neg); Blood, Urine Neg (Neg); Color, Urine Yellow (P-Yellow); Glucose Qualitative, Urine Neg (Neg); Ketones, Urine Neg (Neg); Leukocyte Esterase, Urine Neg (Neg); Nitrite, Urine Neg (Neg); Protein, Urine Neg (Neg); Urobilinogen, Urine NORM (Normal)
== END | disposition home or self-care (01) ==
LOC: LAB SHORT 07:00 → LAB 07:00
PROVIDERS: Nurse Practitioner Family
DX: N39.0 Urinary tract infection, site not specified (principal)
CPT/HCPCS: 81003

== ENCOUNTER 2023-03-15 14:51 | Emergency (ER) | payer MEDICARE, OTHER ==
[~2023-03-15] VITALS: Ht 162.6 cm; Wt 90.7 kg
[2023-03-15] MEDS ORDERED: LOPE2C PO (15:16)
[2023-03-15 16:07] LABS: BASOPHILS ABSOLUTE AUTO 0.05 K/mm3 (0.00-0.23); BASOPHILS PERCENT AUTO 1 % (0-2); EOSINOPHILS ABSOLUTE AUTO 0.33 K/mm3 (0.00-0.68); EOSINOPHILS PERCENT AUTO 4 % (0-6); Hematocrit 39.9 % (33.0-51.0); Hemoglobin 12.5 g/dL (11.5-16.0); IMMATURE GRAN ABSOLUTE AUTO 0.03 K/mm3 (0.00-0.10); IMMATURE GRAN PERCENT AUTO 0 % (0-1); LYMPHOCYTES ABSOLUTE AUTO 1.68 K/mm3 (0.84-5.20); LYMPHOCYTES PERCENT AUTO 22 % (21-46); MONOCYTES PERCENT AUTO 15 % (4-13); Mean Corpuscular HGB Conc 31.3 g/dL (31.5-36.5); Mean Corpuscular Volume 93 fL (80-100); Mean Platelet Volume 10.7 fL (9.1-12.4); NEUTROPHILS ABSOLUTE AUTO 4.32 K/mm3 (1.96-9.15); NEUTROPHILS PERCENT AUTO 58 % (41-73); Platelet Count 216 K/mm3 (150-400); RDW Coefficient Variation 13.9 % (11.7-14.2); RDW Standard Deviation 47.8 fL (35.1-46.3); Red Blood Cell Count 4.31 M/mm3 (3.80-5.20); White Blood Cell Count 7.51 K/mm3 (4.00-11.30)
[2023-03-15 16:31] LABS: Albumin, Blood 3.4 g/dL (3.4-5.0); Albumin/Globulin Ratio 0.7 (0.8-1.8); Bilirubin, Total 0.4 mg/dL (0.1-1.0); Bun/Creatinine Ratio 28.7 (12.0-20.0); Calcium, Blood 9.2 mg/dL (8.5-10.1); Creatinine, Blood 1.57 mg/dL (0.40-1.00); Globulin, Blood 4.9 g/dL (2.2-4.0); Potassium, Blood 4.6 mmol/L (3.5-5.5); Total Protein, Blood 8.3 g/dL (6.4-8.2)
[2023-03-15 16:58] LABS: Source, Urine Straight Cath
[2023-03-15 17:02] LABS: Appearance, Urine Clear (Clear); Bilirubin, Urine Neg (Neg); Blood, Urine 1+ (Neg); Glucose Qualitative, Urine Neg (Neg); Ketones, Urine Neg (Neg); Leukocyte Esterase, Urine Neg (Neg); Nitrite, Urine Neg (Neg); Protein, Urine Neg (Neg); Urobilinogen, Urine NORM (Normal)
[2023-03-15 17:15] LABS: Color, Urine Pale Yellow (P-Yellow)
[2023-03-15 17:16] LABS: Bacteria Few /hpf; Squamous Epithelial Cells Few /hpf (Few); White Blood Cells, Urine 0-2 /hpf (0-5)
[2023-03-15 18:00] VITALS: BP 141/93
== END 2023-03-15 18:55 | disposition home or self-care (01) ==
LOC: ER 14:51
PROVIDERS: Student in an Organized Health Care Education/Training Program
DX: M25.512 Pain in left shoulder (principal); I48.91 Unspecified atrial fibrillation; F32.A Depression, unspecified; E03.9 Hypothyroidism, unspecified; I12.9 Hypertensive chronic kidney disease with stage 1 through stage 4 chronic kidney disease, or unspecified chronic kidney disease; N18.30 Chronic kidney disease, stage 3 unspecified; F03.90 Unspecified dementia, unspecified severity, without behavioral disturbance, psychotic disturbance, mood disturbance, and anxiety; M47.812 Spondylosis without myelopathy or radiculopathy, cervical region; W19.XXXA Unspecified fall, initial encounter; Y92.091 Bathroom in other non-institutional residence as the place of occurrence of the external cause; Z88.8 Allergy status to other drugs, medicaments and biological substances; Z88.0 Allergy status to penicillin; Z88.2 Allergy status to sulfonamides; Z79.01 Long term (current) use of anticoagulants; Z79.899 Other long term (current) drug therapy
CPT/HCPCS: 51701; 70450; 73030; 80053; 81001; 85025; 93005; 93010; 96360-59; 99284-25; J7030

== ENCOUNTER 2023-05-14 05:58 | Emergency (ER) | payer MEDICARE, OTHER ==
[~2023-05-14] VITALS: Ht 160 cm; Wt 108.9 kg
[~2023-05-14 05:58] MED LIST changes: +LOPE2C PO; +ONDA4ODT MM
[2023-05-14 06:19] LABS: BASOPHILS ABSOLUTE AUTO 0.07 K/mm3 (0.00-0.23); BASOPHILS PERCENT AUTO 1 % (0-2); EOSINOPHILS ABSOLUTE AUTO 0.31 K/mm3 (0.00-0.68); EOSINOPHILS PERCENT AUTO 4 % (0-6); Hematocrit 38.4 % (33.0-51.0); Hemoglobin 11.6 g/dL (11.5-16.0); IMMATURE GRAN ABSOLUTE AUTO 0.03 K/mm3 (0.00-0.10); IMMATURE GRAN PERCENT AUTO 0 % (0-1); LYMPHOCYTES ABSOLUTE AUTO 2.54 K/mm3 (0.84-5.20); LYMPHOCYTES PERCENT AUTO 36 % (21-46); MONOCYTES ABSOLUTE AUTO 1.04 K/mm3 (0.16-1.47); MONOCYTES PERCENT AUTO 15 % (4-13); Mean Corpuscular HGB 28.5 pg (26.0-34.0); Mean Corpuscular HGB Conc 30.2 g/dL (31.5-36.5); Mean Corpuscular Volume 94 fL (80-100); NEUTROPHILS ABSOLUTE AUTO 3.15 K/mm3 (1.96-9.15); NEUTROPHILS PERCENT AUTO 44 % (41-73); Platelet Count 218 K/mm3 (150-400); RDW Coefficient Variation 14.5 % (11.7-14.2); RDW Standard Deviation 49.3 fL (35.1-46.3); Red Blood Cell Count 4.07 M/mm3 (3.80-5.20); White Blood Cell Count 7.14 K/mm3 (4.00-11.30)
[2023-05-14] MEDS ORDERED: POTCHL20ER PO (06:26)
[2023-05-14] MEDS ORDERED: ALPR.25 (06:27)
[2023-05-14] MEDS ORDERED: CALC.25 PO (06:28)
[2023-05-14] MEDS ORDERED: ACET325 (06:29)
[2023-05-14 06:41] LABS: Albumin, Blood 3.2 g/dL (3.4-5.0); Albumin/Globulin Ratio 0.8 (0.8-1.8); Bilirubin, Total 0.3 mg/dL (0.1-1.0); Bun/Creatinine Ratio 23.4 (12.0-20.0); Calcium, Blood 8.7 mg/dL (8.5-10.1); Creatinine, Blood 1.67 mg/dL (0.40-1.00); Globulin, Blood 4.2 g/dL (2.2-4.0); Potassium, Blood 4.4 mmol/L (3.5-5.5); Total Protein, Blood 7.4 g/dL (6.4-8.2)
[2023-05-14 10:00] VITALS: BP 108/76
== END 2023-05-14 10:10 | disposition home or self-care (01) ==
LOC: ER 05:58
PROVIDERS: Emergency Medicine
DX: S01.01XA Laceration without foreign body of scalp, initial encounter (principal); J45.909 Unspecified asthma, uncomplicated; E03.9 Hypothyroidism, unspecified; I48.20 Chronic atrial fibrillation, unspecified; F03.90 Unspecified dementia, unspecified severity, without behavioral disturbance, psychotic disturbance, mood disturbance, and anxiety; I12.9 Hypertensive chronic kidney disease with stage 1 through stage 4 chronic kidney disease, or unspecified chronic kidney disease; N18.30 Chronic kidney disease, stage 3 unspecified; Z88.8 Allergy status to other drugs, medicaments and biological substances; Z91.041 Radiographic dye allergy status; Z88.0 Allergy status to penicillin; Z88.5 Allergy status to narcotic agent; Z79.01 Long term (current) use of anticoagulants; Z79.899 Other long term (current) drug therapy; Z87.891 Personal history of nicotine dependence; W18.30XA Fall on same level, unspecified, initial encounter
CPT/HCPCS: 12002; 70450; 72125; 80053; 85025; 93005; 93010; 99285-25

== ENCOUNTER → 2023-06-05 | Outpatient (CLI) | payer MEDICARE, OTHER ==
[~2023-06-05] MED LIST changes: +ACET325; +ALPR.25; +POTCHL20ER PO
[2023-06-05 18:06] LABS: Source, Urine Voided
[2023-06-05 19:16] LABS: Appearance, Urine Clear (Clear); Bilirubin, Urine Neg (Neg); Blood, Urine Neg (Neg); Color, Urine Yellow (P-Yellow); Glucose Qualitative, Urine Neg (Neg); Ketones, Urine Neg (Neg); Leukocyte Esterase, Urine Neg (Neg); Nitrite, Urine Neg (Neg); Protein, Urine Neg (Neg); Specific Gravity, Urine 1.015 (1.003-1.022); Urobilinogen, Urine NORM (Normal)
== END ==
LOC: LAB SHORT 18:04 → LAB 18:04
PROVIDERS: Nurse Practitioner Family
DX: N39.0 Urinary tract infection, site not specified (principal)
CPT/HCPCS: 81003

== ENCOUNTER → 2023-07-21 | Outpatient (CLI) | payer MEDICARE, OTHER ==
[2023-07-21 12:19] LABS: Source, Urine Clean Catch
[2023-07-21 13:20] LABS: Appearance, Urine Clear (Clear); Bilirubin, Urine Neg (Neg); Blood, Urine Neg (Neg); Glucose Qualitative, Urine Neg (Neg); Ketones, Urine Neg (Neg); Leukocyte Esterase, Urine Neg (Neg); Nitrite, Urine Neg (Neg); Protein, Urine Neg (Neg); Urobilinogen, Urine NORM (Normal)
[2023-07-21 13:37] LABS: Color, Urine Pale Yellow (P-Yellow)
== END | disposition home or self-care (01) ==
LOC: LAB SHORT 12:17 → LAB 12:17
PROVIDERS: Nurse Practitioner Family
DX: N39.0 Urinary tract infection, site not specified (principal)
CPT/HCPCS: 81003

== ENCOUNTER 2023-07-29 06:29 | Emergency (ER) | payer MEDICARE, OTHER ==
[~2023-07-29] VITALS: Ht 165.1 cm; Wt 79.4 kg
[2023-07-29 07:21] LABS: BASOPHILS ABSOLUTE AUTO 0.05 K/mm3 (0.00-0.23); BASOPHILS PERCENT AUTO 1 % (0-2); EOSINOPHILS ABSOLUTE AUTO 0.27 K/mm3 (0.00-0.68); EOSINOPHILS PERCENT AUTO 4 % (0-6); Hematocrit 39.6 % (33.0-51.0); Hemoglobin 12.3 g/dL (11.5-16.0); IMMATURE GRAN ABSOLUTE AUTO 0.02 K/mm3 (0.00-0.10); IMMATURE GRAN PERCENT AUTO 0 % (0-1); LYMPHOCYTES ABSOLUTE AUTO 1.94 K/mm3 (0.84-5.20); LYMPHOCYTES PERCENT AUTO 28 % (21-46); MONOCYTES ABSOLUTE AUTO 1.06 K/mm3 (0.16-1.47); MONOCYTES PERCENT AUTO 15 % (4-13); Mean Corpuscular HGB 28.1 pg (26.0-34.0); Mean Corpuscular HGB Conc 31.1 g/dL (31.5-36.5); Mean Corpuscular Volume 90 fL (80-100); Mean Platelet Volume 11.3 fL (9.1-12.4); NEUTROPHILS PERCENT AUTO 53 % (41-73); Platelet Count 251 K/mm3 (150-400); RDW Coefficient Variation 13.9 % (11.7-14.2); RDW Standard Deviation 46.2 fL (35.1-46.3); Red Blood Cell Count 4.38 M/mm3 (3.80-5.20); White Blood Cell Count 7.04 K/mm3 (4.00-11.30)
[2023-07-29 07:40] LABS: Bun/Creatinine Ratio 23.9 (12.0-20.0); Creatinine, Blood 1.76 mg/dL (0.40-1.00); Potassium, Blood 4.6 mmol/L (3.5-5.5)
[2023-07-29 09:45] VITALS: BP 160/115
== END 2023-07-29 10:03 | disposition home or self-care (01) ==
LOC: ER 06:29
PROVIDERS: Emergency Medicine
DX: S00.03XA Contusion of scalp, initial encounter (principal); W18.30XA Fall on same level, unspecified, initial encounter; F03.90 Unspecified dementia, unspecified severity, without behavioral disturbance, psychotic disturbance, mood disturbance, and anxiety; J32.9 Chronic sinusitis, unspecified; I12.9 Hypertensive chronic kidney disease with stage 1 through stage 4 chronic kidney disease, or unspecified chronic kidney disease; N18.30 Chronic kidney disease, stage 3 unspecified; J45.909 Unspecified asthma, uncomplicated; E03.9 Hypothyroidism, unspecified; I48.91 Unspecified atrial fibrillation; Z88.8 Allergy status to other drugs, medicaments and biological substances; Z88.0 Allergy status to penicillin; Z88.2 Allergy status to sulfonamides; Z88.5 Allergy status to narcotic agent; Z91.041 Radiographic dye allergy status; Z79.01 Long term (current) use of anticoagulants; Z79.899 Other long term (current) drug therapy; Z87.891 Personal history of nicotine dependence
CPT/HCPCS: 70450; 72125; 80048; 85025; 99284-25

== ENCOUNTER 2023-08-28 14:20 | Emergency (ER) | payer OTHER, MEDICARE ==
[~2023-08-28] VITALS: Ht 160 cm; Wt 90.7 kg
[2023-08-28] MEDS ORDERED: DULCOLAX400 MG/5 M (15:02)
[2023-08-28] MEDS ORDERED: ONDA4SO (15:02)
[2023-08-28 15:27] LABS: BASOPHILS ABSOLUTE AUTO 0.04 K/mm3 (0.00-0.23); BASOPHILS PERCENT AUTO 1 % (0-2); EOSINOPHILS ABSOLUTE AUTO 0.33 K/mm3 (0.00-0.68); EOSINOPHILS PERCENT AUTO 5 % (0-6); Hematocrit 40.5 % (33.0-51.0); Hemoglobin 12.3 g/dL (11.5-16.0); IMMATURE GRAN ABSOLUTE AUTO 0.03 K/mm3 (0.00-0.10); IMMATURE GRAN PERCENT AUTO 0 % (0-1); LYMPHOCYTES ABSOLUTE AUTO 1.91 K/mm3 (0.84-5.20); LYMPHOCYTES PERCENT AUTO 27 % (21-46); MONOCYTES ABSOLUTE AUTO 0.97 K/mm3 (0.16-1.47); MONOCYTES PERCENT AUTO 14 % (4-13); Mean Corpuscular HGB 27.8 pg (26.0-34.0); Mean Corpuscular HGB Conc 30.4 g/dL (31.5-36.5); Mean Corpuscular Volume 92 fL (80-100); Mean Platelet Volume 11.2 fL (9.1-12.4); NEUTROPHILS ABSOLUTE AUTO 3.68 K/mm3 (1.96-9.15); NEUTROPHILS PERCENT AUTO 53 % (41-73); Platelet Count 229 K/mm3 (150-400); RDW Coefficient Variation 14.9 % (11.7-14.2); Red Blood Cell Count 4.42 M/mm3 (3.80-5.20); White Blood Cell Count 6.96 K/mm3 (4.00-11.30)
[2023-08-28 15:45] VITALS: BP 140/95
[2023-08-28 15:46] LABS: International Normalized Ratio 1.04; Prothrombin Time Results 10.9 Sec (9.7-11.5)
[2023-08-28 15:56] LABS: Albumin, Blood 3.8 g/dL (3.4-5.0); Albumin/Globulin Ratio 0.8 (0.8-1.8); Bilirubin, Total 0.3 mg/dL (0.1-1.0); Bun/Creatinine Ratio 25.4 (12.0-20.0); Calcium, Blood 8.9 mg/dL (8.5-10.1); Creatinine, Blood 1.77 mg/dL (0.40-1.00); Globulin, Blood 4.6 g/dL (2.2-4.0); Potassium, Blood 4.5 mmol/L (3.5-5.5); Total Protein, Blood 8.4 g/dL (6.4-8.2)
== END 2023-08-28 18:24 | disposition home or self-care (01) ==
LOC: ER 14:20
PROVIDERS: Emergency Medicine
DX: S00.03XA Contusion of scalp, initial encounter (principal); J32.9 Chronic sinusitis, unspecified; W01.10XA Fall on same level from slipping, tripping and stumbling with subsequent striking against unspecified object, initial encounter; Z88.8 Allergy status to other drugs, medicaments and biological substances; Z91.041 Radiographic dye allergy status; Z88.0 Allergy status to penicillin; Z88.2 Allergy status to sulfonamides; Z88.5 Allergy status to narcotic agent; Z79.899 Other long term (current) drug therapy; J45.909 Unspecified asthma, uncomplicated; E03.9 Hypothyroidism, unspecified; I48.91 Unspecified atrial fibrillation; M19.90 Unspecified osteoarthritis, unspecified site; I12.9 Hypertensive chronic kidney disease with stage 1 through stage 4 chronic kidney disease, or unspecified chronic kidney disease; N18.30 Chronic kidney disease, stage 3 unspecified; Z87.891 Personal history of nicotine dependence
CPT/HCPCS: 70450; 80053; 85025; 85610; 93005; 93010; 99284-25

== ENCOUNTER → 2024-02-01 | Outpatient (CLI) | payer MEDICARE, OTHER ==
[~2024-02-01] MED LIST changes: +DULCOLAX400 MG/5 M; +ONDA4SO
[2024-02-01 10:45] LABS: Source, Urine Clean Catch
[2024-02-01 13:24] LABS: Appearance, Urine Clear (Clear); Bilirubin, Urine Neg (Neg); Blood, Urine Neg (Neg); Color, Urine Yellow (P-Yellow); Glucose Qualitative, Urine Neg (Neg); Ketones, Urine Neg (Neg); Leukocyte Esterase, Urine Neg (Neg); Nitrite, Urine Neg (Neg); Protein, Urine Neg (Neg); Specific Gravity, Urine 1.015 (1.003-1.022); Urobilinogen, Urine NORM (Normal)
== END | disposition home or self-care (01) ==
LOC: LAB 07:15 → LAB SHORT 07:15
PROVIDERS: Nurse Practitioner Family
DX: N39.0 Urinary tract infection, site not specified (principal)
CPT/HCPCS: 81003

== ENCOUNTER 2024-05-04 03:59 | Emergency (ER) | payer MEDICARE, OTHER ==
[~2024-05-04] VITALS: Ht 165.1 cm; Wt 90.7 kg
[2024-05-04] MEDS ORDERED: Acetaminophen 325 MG TABLET PO ONE (04:05)
[2024-05-04] MEDS ORDERED: BUMETANIDE2 M6 PO (04:37)
[2024-05-04] MEDS ORDERED: CALCITRIOL0.25 MC4 PO (04:38)
[2024-05-04 06:00] VITALS: BP 117/65
== END 2024-05-04 06:15 | disposition home or self-care (01) ==
LOC: ER 03:59
DX: S06.9XAA Unspecified intracranial injury with loss of consciousness status unknown, initial encounter (principal); S02.2XXA Fracture of nasal bones, initial encounter for closed fracture; J45.909 Unspecified asthma, uncomplicated; E03.9 Hypothyroidism, unspecified; I48.91 Unspecified atrial fibrillation; M19.90 Unspecified osteoarthritis, unspecified site; I12.9 Hypertensive chronic kidney disease with stage 1 through stage 4 chronic kidney disease, or unspecified chronic kidney disease; N18.30 Chronic kidney disease, stage 3 unspecified; W06.XXXA Fall from bed, initial encounter; Z87.891 Personal history of nicotine dependence; Z79.899 Other long term (current) drug therapy; Z88.0 Allergy status to penicillin; Z88.2 Allergy status to sulfonamides; Z88.5 Allergy status to narcotic agent; Z91.041 Radiographic dye allergy status; Z88.8 Allergy status to other drugs, medicaments and biological substances
CPT/HCPCS: 70450; 70486; 72125; 99284-25; A9270